=== PATIENT | male | born 1940 | race African-American/Black ===

== ENCOUNTER 2016-05-12 10:31 | Observation (INO) | payer MEDICARE ==
[2016-05-12] VITALS (11 sets, daily range): BP systolic 153–256; BP diastolic 70–121; PULSE 65–99; RESP 18–20; TEMP 98–98.4; O2SAT 96–99
[~2016-05-12] VITALS: Ht 170.2 cm; Wt 100.5 kg
--- NOTE | 2016-05-12 11:54 | PD ---
HPI Chief Complaint: Hypertension Time Seen by Provider: 11:50 Travel History International Travel<30 days: No Contact w/Intl Traveler<30days: No Traveled to known affect area: No History of Present Illness HPI Patient is a 76-year-old male presenting to emergency for evaluation of high blood pressure. Patient went to an urgent care center on Thursday due to left wrist pain and swelling, his blood pressure was high at that time and he was advised to follow-up with a primary care provider in 2 days. Patient does not have a primary care provider at this time. He states over the weekend he continue to monitor his blood pressure and he continued to be high. When his blood pressure was high again this morning they presented to the emergency department for evaluation. Patient denies any chest pain, shortness of breath, peripheral edema, nausea, vomiting, headache. Patient reports a remote history of hypertension but states he's been taken off of the medication because it resolved itself. Patient denies any tobacco, drug or alcohol use. PFSH Past Medical History Cardiovascular Problems: Yes (ENLARGED HEART ) Hypertension: Yes Past Surgical History Other Surgery: Yes (back surgery) Social History Alcohol Use: No Tobacco Use: No Substance Use: No Allergies-Medications (Allergen,Severity, Reaction): Coded Allergies: No Known Allergies (Unverified , 05/12/16) Reported Meds & Prescriptions Reported Meds & Active Scripts Active Norvasc (Amlodipine Besylate) 5 Mg Tab 5 Mg PO DAILY Review of Systems Except as stated in HPI: all other systems reviewed are Neg Physical Exam Narrative GENERAL: Well-developed, well-nourished, elderly gentleman. Resting comfortably in no acute distress. SKIN: Warm and dry. HEAD: Atraumatic. Normocephalic. EYES: Pupils equal and round. No scleral icterus. No injection or drainage. ENT: No nasal bleeding or discharge. Mucous membranes pink and moist. NECK: Trachea midline. No JVD. CARDIOVASCULAR: Regular rate and rhythm. 2/6 systolic murmur appreciated. RESPIRATORY: No accessory muscle use. Clear to auscultation. Breath sounds equal bilaterally. GASTROINTESTINAL: Abdomen soft, non-tender, nondistended. Hepatic and splenic margins not palpable. MUSCULOSKELETAL: No obvious deformities. No clubbing. No cyanosis. No edema. NEUROLOGICAL: Awake and alert. No obvious cranial nerve deficits. Motor grossly within normal limits. Normal speech. PSYCHIATRIC: Appropriate mood and affect; insight and judgment normal. Data Data Last Documented VS Vital Signs Date Time Temp Pulse Resp B/P Pulse Ox O2 Delivery O2 Flow Rate FiO2 05/12/16 15:00 80 18 181/86 98 05/12/16 13:29 Room Air 05/12/16 10:33 98.1 Orders Electrocardiogram (05/12/16 11:55) Ckmb (Isoenzyme) Profile (05/12/16 11:55) Complete Blood Count With Diff (05/12/16 11:55) Comprehensive Metabolic Panel (05/12/16 11:55) Magnesium (Mg) (05/12/16 11:55) Prothrombin Time / Inr (Pt) (05/12/16 11:55) Act Partial Throm Time (Ptt) (05/12/16 11:55) Troponin I (05/12/16 11:55) Chest, Single Ap (05/12/16 11:55) Urinalysis - C+S If Indicated (05/12/16 11:55) Amlodipine (Norvasc) (05/12/16 13:15) Hydralazine Inj (Apresoline Inj) (05/12/16 13:15) CKMB (05/12/16 12:10) CKMB% (05/12/16 12:10) Aspirin (Aspirin) (05/12/16 14:45) Admit Order (Ed Use Only) (05/12/16 14:59) Labs Laboratory Tests Test 05/12/16 05/12/16 12:10 12:14 White Blood Count 9.8 TH/MM3 Red Blood Count 4.76 MIL/MM3 Hemoglobin 12.8 GM/DL Hematocrit 38.1 % Mean Corpuscular Volume 80.1 FL Mean Corpuscular Hemoglobin 26.9 PG Mean Corpuscular Hemoglobin 33.6 % Concent Red Cell Distribution Width 15.1 % Platelet Count 213 TH/MM3 Mean Platelet Volume 10.3 FL Neutrophils (%) (Auto) 60.8 % Lymphocytes (%) (Auto) 30.9 % Monocytes (%) (Auto) 7.5 % Eosinophils (%) (Auto) 0.3 % Basophils (%) (Auto) 0.5 % Neutrophils # (Auto) 6.0 TH/MM3 Lymphocytes # (Auto) 3.0 TH/MM3 Monocytes # (Auto) 0.7 TH/MM3 Eosinophils # (Auto) 0.0 TH/MM3 Basophils # (Auto) 0.0 TH/MM3 CBC Comment DIFF FINAL Differential Comment Prothrombin Time 10.7 SEC Prothromb Time International 1.0 RATIO Ratio Activated Partial 29.5 SEC Thromboplast Time Sodium Level 137 MEQ/L Potassium Level 3.7 MEQ/L Chloride Level 103 MEQ/L Carbon Dioxide Level 23.0 MEQ/L Anion Gap 11 MEQ/L Blood Urea Nitrogen 20 MG/DL Creatinine 1.07 MG/DL Estimat Glomerular Filtration 81 ML/MIN Rate Random Glucose 80 MG/DL Calcium Level 9.2 MG/DL Magnesium Level 2.3 MG/DL Total Bilirubin 0.5 MG/DL Aspartate Amino Transf 15 U/L (AST/SGOT) Alanine Aminotransferase 23 U/L (ALT/SGPT) Alkaline Phosphatase 105 U/L Total Creatine Kinase 142 U/L Creatine Kinase MB 2.6 NG/ML Troponin I 0.06 NG/ML Total Protein 8.7 GM/DL Albumin 3.8 GM/DL Urine Color YELLOW Urine Turbidity CLEAR Urine pH 5.5 Urine Specific [place] 1.017 Urine Protein NEG mg/dL Urine Glucose (UA) NEG mg/dL Urine Ketones NEG mg/dL Urine Occult Blood NEG Urine Nitrite NEG Urine Bilirubin NEG Urine Urobilinogen LESS THAN 2.0 MG/DL Urine Leukocyte Esterase NEG Urine RBC 1 /hpf Urine WBC 1 /hpf Microscopic Urinalysis Comment CULT NOT INDICATED MDM Medical Decision Making Medical Screen Exam Complete: Yes Emergency Medical Condition: Yes Interpretation(s) Vital Signs Date Time Temp Pulse Resp B/P Pulse Ox O2 Delivery O2 Flow Rate FiO2 05/12/16 10:33 98.1 76 20 222/105 96 Room Air Differential Diagnosis Essential hypertension versus hypertensive urgency versus electrolyte abnormality versus cardiac arrhythmia versus other Narrative Course Patient is a 76-year-old male presenting to emergency room for evaluation of high blood pressure readings. Patient has a remote history of hypertension but was taken off of medication. He denies any physical complaints at this time. Workup initiated in triage, care patient will be transferred to provider when medical bed is available. Patient is resting comfortably, he is accompanied by family member. Scripts Amlodipine (Norvasc)5 Mg Tab5 Mg PO DAILY #30 TAB Ref 0 Prov:Jannette Blackwell DO 05/12/16 Oksana Mckeon May 12, 2016 11:54
--- NOTE | 2016-05-12 12:30 | RADRPT ---
EXAM DATE/TIME: 05/12/2016 11:55 [facility] COMPARISON: No previous studies available for comparison. INDICATIONS : High blood pressure. MEDICAL HISTORY : Hypertension. SURGICAL HISTORY : None. ENCOUNTER: Initial ACUITY: 1 day PAIN SCORE: 0/10 LOCATION: Bilateral chest FINDINGS: A single view of the chest demonstrates the lungs to be symmetrically aerated without evidence of mas s, infiltrate or effusion. The cardiomediastinal contours are unremarkable. Osseous structures are intact. CONCLUSION: No acute disease. Placido Stafford MD FACR on May 12, 2016 at 12:28 Board Certified Radiologist. This report was verified electronically.
[2016-05-12 12:41] LABS: BASOPHIL % 0.5 % (0.0-2.0); EOSINOPHIL % 0.3 % (0.0-4.0); HEMATOCRIT 38.1 % (39.0-51.0); HEMO FLAGS DIFF FINAL; LYMPH % 30.9 % (9.0-44.0); MEAN CELL VOLUME 80.1 FL (80.0-100.0); MEAN CORPUSCULAR HEMOGLOBIN 26.9 PG (27.0-34.0); MEAN CORPUSCULAR HGB CONC 33.6 % (32.0-36.0); MONO % 7.5 % (0.0-8.0); NEUT % 60.8 % (16.0-70.0); PLATELET COUNT 213 TH/MM3 (150-450); RED BLOOD COUNT 4.76 MIL/MM3 (4.50-5.90); RED CELL DISTRIBUTION WIDTH 15.1 % (11.6-17.2); WHITE BLOOD COUNT 9.8 TH/MM3 (4.0-11.0)
[2016-05-12 12:59] LABS: ANION GAP 11 MEQ/L (5-15); AST (GOT) 15 U/L (15-37); BLOOD UREA NITROGEN 20 MG/DL (7-18); CHLORIDE 103 MEQ/L (98-107); GLOMERULAR FILTRATION RATE 81 ML/MIN (>89); MAGNESIUM 2.3 MG/DL (1.5-2.5); POTASSIUM 3.7 MEQ/L (3.5-5.1); SODIUM (NA) 137 MEQ/L (136-145)
[2016-05-12 13:02] LABS: APTT (PATIENT) 29.5 SEC (24.3-30.1); PROTHROMBIN TIME - PATIENT 10.7 SEC (9.8-11.6)
[2016-05-12 13:03] LABS: ALKALINE PHOSPHATASE 105 U/L (45-117); ALT (GPT) 23 U/L (12-78); CREATINE KINASE 142 U/L (39-308); TOTAL BILIRUBIN ADULT 0.5 MG/DL (0.2-1.0)
[2016-05-12 13:11] LABS: BLOOD, URINE NEG (NEG); GLUCOSE,URINE NEG (NEG); KETONE, URINE NEG (NEG); NITRITE,URINE NEG (NEG); PH, URINE 5.5 (5.0-8.5); URINE COLOR YELLOW (YELLW/STRAW)
[2016-05-12 13:12] LABS: COMMENT (UR) CULT NOT INDICATED; CULTURE IF INDICATED CULT NOT INDICATED
[2016-05-12] MEDS ORDERED: AMLO5 PO (13:15)
[2016-05-12] MEDS ORDERED: amLODIPine BESYLATE 5 MG TAB PO ONE (13:15)
[2016-05-12] MEDS ORDERED: hydrALAZINE HCL 20 MG/ML VIAL IV PUSH ONE (13:15)
[2016-05-12 13:16] LABS: CKMB 2.6 NG/ML (0.5-3.6)
--- NOTE | 2016-05-12 13:16 | PD ---
Physical Exam Date Seen by Provider: May 12, 2016 Data Data Last Documented VS Vital Signs Date Time Temp Pulse Resp B/P Pulse Ox O2 Delivery O2 Flow Rate FiO2 05/12/16 13:40 80 18 174/70 99 05/12/16 13:29 Room Air 05/12/16 10:33 98.1 Orders Electrocardiogram (05/12/16 11:55) Ckmb (Isoenzyme) Profile (05/12/16 11:55) Complete Blood Count With Diff (05/12/16 11:55) Comprehensive Metabolic Panel (05/12/16 11:55) Magnesium (Mg) (05/12/16 11:55) Prothrombin Time / Inr (Pt) (05/12/16 11:55) Act Partial Throm Time (Ptt) (05/12/16 11:55) Troponin I (05/12/16 11:55) Chest, Single Ap (05/12/16 11:55) Urinalysis - C+S If Indicated (05/12/16 11:55) Amlodipine (Norvasc) (05/12/16 13:15) Hydralazine Inj (Apresoline Inj) (05/12/16 13:15) CKMB (05/12/16 12:10) CKMB% (05/12/16 12:10) Aspirin (Aspirin) (05/12/16 14:45) Labs Laboratory Tests Test 05/12/16 05/12/16 12:10 12:14 White Blood Count 9.8 TH/MM3 Red Blood Count 4.76 MIL/MM3 Hemoglobin 12.8 GM/DL Hematocrit 38.1 % Mean Corpuscular Volume 80.1 FL Mean Corpuscular Hemoglobin 26.9 PG Mean Corpuscular Hemoglobin 33.6 % Concent Red Cell Distribution Width 15.1 % Platelet Count 213 TH/MM3 Mean Platelet Volume 10.3 FL Neutrophils (%) (Auto) 60.8 % Lymphocytes (%) (Auto) 30.9 % Monocytes (%) (Auto) 7.5 % Eosinophils (%) (Auto) 0.3 % Basophils (%) (Auto) 0.5 % Neutrophils # (Auto) 6.0 TH/MM3 Lymphocytes # (Auto) 3.0 TH/MM3 Monocytes # (Auto) 0.7 TH/MM3 Eosinophils # (Auto) 0.0 TH/MM3 Basophils # (Auto) 0.0 TH/MM3 CBC Comment DIFF FINAL Differential Comment Prothrombin Time 10.7 SEC Prothromb Time International 1.0 RATIO Ratio Activated Partial 29.5 SEC Thromboplast Time Sodium Level 137 MEQ/L Potassium Level 3.7 MEQ/L Chloride Level 103 MEQ/L Carbon Dioxide Level 23.0 MEQ/L Anion Gap 11 MEQ/L Blood Urea Nitrogen 20 MG/DL Creatinine 1.07 MG/DL Estimat Glomerular Filtration 81 ML/MIN Rate Random Glucose 80 MG/DL Calcium Level 9.2 MG/DL Magnesium Level 2.3 MG/DL Total Bilirubin 0.5 MG/DL Aspartate Amino Transf 15 U/L (AST/SGOT) Alanine Aminotransferase 23 U/L (ALT/SGPT) Alkaline Phosphatase 105 U/L Total Creatine Kinase 142 U/L Creatine Kinase MB 2.6 NG/ML Troponin I 0.06 NG/ML Total Protein 8.7 GM/DL Albumin 3.8 GM/DL Urine Color YELLOW Urine Turbidity CLEAR Urine pH 5.5 Urine Specific [place] 1.017 Urine Protein NEG mg/dL Urine Glucose (UA) NEG mg/dL Urine Ketones NEG mg/dL Urine Occult Blood NEG Urine Nitrite NEG Urine Bilirubin NEG Urine Urobilinogen LESS THAN 2.0 MG/DL Urine Leukocyte Esterase NEG Urine RBC 1 /hpf Urine WBC 1 /hpf Microscopic Urinalysis Comment CULT NOT INDICATED MDM Medical Record Reviewed: Yes Supervised Visit with LAVONNE: Yes Interpretation(s) EKG at 1203: Normal sinus rhythm at 71 bpm, QT/QTc 388/410, first-degree AV block, no acute ST-T wave changes Vital Signs Date Time Temp Pulse Resp B/P Pulse Ox O2 Delivery O2 Flow Rate FiO2 05/12/16 13:02 74 18 256/121 99 Room Air 05/12/16 10:33 98.1 76 20 222/105 96 Room Air Differential Diagnosis Accelerated hypertension, renal insufficiency, electrolyte abnormalities, Narrative Course Patient is a 76-year-old male who presents to emergency room for evaluation of hypertension. Patient reports that he went to an urgent care center on Thursday as he had left-sided wrist pain and swelling, reports that he was told there that he had high blood pressure. Patient reports that he has had history of hypertension in the past, reports that he was previously on antihypertensives and was taken off of them greater than 20 years ago. Patient reports that he has not follow-up with a primary care doctor since then, reports that he is not currently on any medications. Patient reports that he has no headache or dizziness at this time. Patient denies any chest pain or shortness of breath. Patient reports that he came to the emergency room as he does not have a primary care doctor and wanted to have his blood pressure checked. Patient reports resolution of pain to his left wrist at this time, reports no complaints. Patient is presents to emergency room with accelerated hypertension, initial blood pressure was 222/105 with repeat blood pressure to 256/121. Patient is asymptomatic at this time, patient with no headache or dizziness, plan to obtain labs and evaluate for end organ damage. Will start patient on Norvasc. Patient understands need to follow-up with a primary care doctor Blood pressure now 195/83 Troponin 0.06 which is intermediate risk. Patient with no chest pain at this time. Discussed with patient that he will need to be observed in the hospital to trend his troponins, discussed that elevated troponins could be secondary to accelerated hypertension. Patient at this time refusing admission to the hospital. I discussed with patient my concerns as he has not follow-up with a primary care doctor, he does have an elevated blood pressure with a positive troponin which is concerning. Understands that I would like to keep the hospital for observation and for blood pressure monitoring and to trend that his troponins. Patient refusing admission at this time, patient's son at bedside AMA: The risks of leaving against medical advice without further evaluation treatment were discussed with the patient. These risks include cardiac dysfunction, cardiac dysrhythmia, possible heart attack, possible stroke or . The patient indicated understanding of these risks and appeared to have the capacity to make this decision. Patient now would like to be admitted to the hospital. Reviewed case with Dr. Cameron who accepts patient to service. Plan for observation patient and obtain serial troponins and to monitor blood pressure. Physician Communication Physician Communication case reviewed with dr cameron who accepts pt to service Diagnosis Primary Impression: Hypertension Qualified Code: I10 - Essential hypertension Additional Impression: positive troponin Admitting Information Admitting Physician Requests: Observation Referrals: Health Center Manager [facility] Primary Care Physician Patient Instructions: General Instructions Additional Instruction: Please follow-up with your primary care doctor as soon as possible You'll need your blood pressure rechecked in 1-2 days Please take all medications as prescribed Return to emergency room at any time if symptoms progress or worsen Med/Other Pt SpecificInfo: Prescription(s) given Scripts Amlodipine (Norvasc)5 Mg Tab5 Mg PO DAILY #30 TAB Ref 0 Prov:Jannette Blackwell DO 05/12/16 Disposition: 07 AGAINST MEDICAL ADVICE Condition: Serious Jannette Blackwell DO May 12, 2016 13:16
[2016-05-12] MEDS ORDERED: ASPIRIN 325 MG TAB PO ONE (14:45)
[2016-05-12] MEDS ORDERED: SODIUM CHLORIDE 0.9% FLUSH 5 ML FLUSH FLUSH PRN (15:00)
[2016-05-12] MEDS ORDERED: ZOLPIDEM TARTRATE 5 MG TAB PO PRN (15:00)
[2016-05-12] MEDS ORDERED: ACETAMINOPHEN 325 MG TAB PO PRN (15:00)
[2016-05-12] MEDS ORDERED: METOCLOPRAMIDE HCL 10 MG/2 ML VIAL IV PUSH PRN (15:00)
[2016-05-12] MEDS ORDERED: SODIUM CHLOR 0.9% 1000 ML INJ 1,000 ML IV SCH (15:00)
[2016-05-12] MEDS ORDERED: BISACODYL 10 MG SUPP PR PRN (15:00)
[2016-05-12] MEDS: DOCUSATE SODIUM 100 MG CAP PO SCH ×2 (15:00→23:35)
[2016-05-12] MEDS ORDERED: NALOXONE HCL 0.4 MG/ML AMP IV PRN (15:00)
[2016-05-12] MEDS ORDERED: ONDANSETRON HCL 4 MG/2 ML VIAL IVP PRN (15:00)
[2016-05-12] MEDS: METOPROLOL TARTRATE 25 MG TAB PO SCH ×2 (15:19→20:35)
--- NOTE | 2016-05-12 15:19 | HHI.HP ---
[facility] Service [facility] Primary Care Physician No Primary Care Physician Admission Diagnosis Positive Troponin, accelerated hypertension Diagnoses: (1) Elevated troponin level Diagnosis: Principal (2) Accelerated hypertension Diagnosis: Principal Chief Complaint: Accelerated Hypertension Travel History International Travel<30 Days: No Contact w/Intl Traveler <30 Da: No Traveled to Known Affected Are: No History of Present Illness This is a pleasant 76 y/o male who came to Emergency room due to elevated blood pressure he went to an Urgent Care with complaint of left wrist pain and swelling, found with elevated blood pressure, advised to follow with PCP but the patient hasn't got PCP, decided to come to ER, when he came to ER his blood pressure was elevated, on initial tests found with also elevated Troponin level, suggested by Emergency medicine Specialist to admit, denies chest pain, shortness of breath, peripheral edema, nausea, vomiting, headache. he has History of Hypertension. Patient seen in the room in the presence of his relative no new issues stable. Past Family Social History Past Medical History Cardiomegaly Hypertension. Past Surgical History Back Surgery Reported Medications Reported Meds & Active Scripts Active Norvasc (Amlodipine Besylate) 5 Mg Tab 5 Mg PO DAILY Allergies: Coded Allergies: No Known Allergies (Unverified , 05/12/16) Active Ordered Medications Current Medications Medications (Trade) Dose Ordered Sig/Saroj Route Start Time Stop Time Status Last Admin (NS 1000 ml Inj) 1,000 ml @ 100 mls/hr Q10H IV 05/12/16 15:00 05/12/16 15:18 (NS Flush) 2 ml UNSCH PRN FLUSH 05/12/16 15:00 (NS Flush) 2 ml BID FLUSH 05/12/16 21:00 (Tylenol) 650 mg Q4H PRN PO 05/12/16 15:00 (Zofran Inj) 4 mg Q6H PRN IVP 05/12/16 15:00 (Reglan Inj) 5 mg Q6H PRN IV PUSH 05/12/16 15:00 (Dulcolax Supp) 10 mg DAILY PRN VT 05/12/16 15:00 (Colace) 100 mg Q12H PO 05/12/16 15:00 (Ambien) 5 mg HS PRN PO 05/12/16 15:00 (Lovenox Inj) 40 mg Q24H SQ 05/12/16 16:00 (Narcan Inj) 0.4 mg UNSCH PRN IV 05/12/16 15:00 (Lopressor) 12.5 mg Q12HR PO 05/12/16 15:10 05/12/16 15:19 Family History Mother with DM II Sister with Cancer he does not know where. Social History worked for the [employer], lives with his , Denies any toxic habit Physical Exam Vital Signs Vital Signs Date Time Temp Pulse Resp B/P Pulse Ox O2 Delivery O2 Flow Rate FiO2 05/12/16 13:40 80 18 174/70 99 05/12/16 13:29 69 18 195/83 97 Room Air 05/12/16 13:02 74 18 256/121 99 Room Air 05/12/16 10:33 98.1 76 20 222/105 96 Room Air Physical Exam GENERAL: Well-developed, well-nourished, elderly gentleman. SKIN: Warm and dry. HEAD: Atraumatic. Normocephalic. EYES: Pupils equal and round. No scleral icterus. No injection or drainage. ENT: No nasal bleeding or discharge. Mucous membranes pink and moist. NECK: Trachea midline. No JVD. CARDIOVASCULAR: Regular rate and rhythm. No murmur appreciated. RESPIRATORY: No accessory muscle use. Clear to auscultation. Breath sounds equal bilaterally. GASTROINTESTINAL: Abdomen soft, non-tender, nondistended. Hepatic and splenic margins not palpable. MUSCULOSKELETAL: No obvious deformities. No clubbing. No cyanosis. No edema. NEUROLOGICAL: Awake and alert. No obvious cranial nerve deficits. Motor grossly within normal limits. Normal speech. PSYCHIATRIC: Appropriate mood and affect; insight and judgment normal. Laboratory Laboratory Tests Test 05/12/16 05/12/16 12:10 12:14 White Blood Count 9.8 Red Blood Count 4.76 Hemoglobin 12.8 Hematocrit 38.1 Mean Corpuscular Volume 80.1 Mean Corpuscular Hemoglobin 26.9 Mean Corpuscular Hemoglobin 33.6 Concent Red Cell Distribution Width 15.1 Platelet Count 213 Mean Platelet Volume 10.3 Neutrophils (%) (Auto) 60.8 Lymphocytes (%) (Auto) 30.9 Monocytes (%) (Auto) 7.5 Eosinophils (%) (Auto) 0.3 Basophils (%) (Auto) 0.5 Neutrophils # (Auto) 6.0 Lymphocytes # (Auto) 3.0 Monocytes # (Auto) 0.7 Eosinophils # (Auto) 0.0 Basophils # (Auto) 0.0 CBC Comment DIFF FINAL Differential Comment Prothrombin Time 10.7 Prothromb Time International 1.0 Ratio Activated Partial 29.5 Thromboplast Time Sodium Level 137 Potassium Level 3.7 Chloride Level 103 Carbon Dioxide Level 23.0 Anion Gap 11 Blood Urea Nitrogen 20 Creatinine 1.07 Estimat Glomerular Filtration 81 Rate Random Glucose 80 Calcium Level 9.2 Magnesium Level 2.3 Total Bilirubin 0.5 Aspartate Amino Transf 15 (AST/SGOT) Alanine Aminotransferase 23 (ALT/SGPT) Alkaline Phosphatase 105 Total Creatine Kinase 142 Creatine Kinase MB 2.6 Troponin I 0.06 Total Protein 8.7 Albumin 3.8 Urine Color YELLOW Urine Turbidity CLEAR Urine pH 5.5 Urine Specific [place] 1.017 Urine Protein NEG Urine Glucose (UA) NEG Urine Ketones NEG Urine Occult Blood NEG Urine Nitrite NEG Urine Bilirubin NEG Urine Urobilinogen LESS THAN 2.0 Urine Leukocyte Esterase NEG Urine RBC 1 Urine WBC 1 Microscopic Urinalysis Comment CULT NOT INDICATED Result Diagram: 05/12/16 1210 05/12/16 1210 Imaging Last Impressions Chest X-Ray 05/12/16 1155 Signed Impressions: Service Date/Time: Thursday, May 12, 2016 11:55 - CONCLUSION: No acute disease. Placido Stafford MD FACR Assessment and Plan Problem List: (1) Accelerated hypertension ICD Code: I10 Status: Acute (2) Elevated troponin level ICD Code: R74.8 Status: Acute Assessment and Plan 1. Accelerated Hypertension, started on Beta blockers and Diuretics. he was taking anti Hypertensive medicines 20 years ago until was stopped by his PCP. 2. Elevated Troponin level. will continue Hospitalized for 23 hour observation, I think is Equivocal Troponin elevation. continue Cardiac Enzymes every six hours, Cardiac monitoring, Echocardiogram DVT prophylaxis with Lovenox complete laboratory with TSH, Free T4, Hemoglobin A1C, Lipid panel Code Status Full Code. Discussed Condition With Patient, ER specialist and his relative in the room Physician Certification 2 Midnight Certification Type: Admission for Inpatient Services Order for Inpatient Services The services are ordered in accordance with Medicare regulations or non- Medicare payer requirements, as applicable. In the case of services not specified as inpatient-only, they are appropriately provided as inpatient services in accordance with the 2-midnight benchmark. Estimated LOS (days): 1 days is the estimated time the patient will need to remain in the hospital, assuming treatment plan goals are met and no additional complications. Post-Hospital Plan: Home Anthony Cameron MD May 12, 2016 15:19
[2016-05-12] MEDS: ENOXAPARIN SODIUM 40 MG/0.4 ML SYRINGE SQ SCH (16:35)
[2016-05-12] MEDS: HYDROCHLOROTHIAZIDE 25 MG TAB PO SCH (17:23)
[2016-05-12] MEDS: cloNIDine HCL 0.1 MG TAB PO PRN (20:35)
[2016-05-12] MEDS: SODIUM CHLORIDE 0.9% FLUSH 5 ML FLUSH FLUSH SCH (20:37)
[2016-05-12 23:48] LABS: CREATINE KINASE 111 U/L (39-308); FREE T4 1.13 NG/DL (0.76-1.46)
[2016-05-13] VITALS (9 sets, daily range): BP systolic 113–184; BP diastolic 58–88; PULSE 60–77; RESP 18–20; TEMP 98.2–98.7; O2SAT 95–97
[2016-05-13] MEDS: HYDROCHLOROTHIAZIDE 25 MG TAB PO SCH (08:50)
[2016-05-13] MEDS: METOPROLOL TARTRATE 25 MG TAB PO SCH ×2 (08:50→20:59)
[2016-05-13] MEDS: SODIUM CHLORIDE 0.9% FLUSH 5 ML FLUSH FLUSH SCH ×2 (08:51→21:03)
[2016-05-13 09:05] LABS: AUTOMATED NEUTROPHIL # 4.5 TH/MM3 (1.8-7.7); BASOPHIL % 0.6 % (0.0-2.0); EOSINOPHIL % 0.5 % (0.0-4.0); HEMATOCRIT 37.8 % (39.0-51.0); HEMO FLAGS DIFF FINAL; LYMPH % 32.6 % (9.0-44.0); LYMPHOCYTE # 2.7 TH/MM3 (1.0-4.8); MEAN CELL VOLUME 81.1 FL (80.0-100.0); MEAN CORPUSCULAR HEMOGLOBIN 26.8 PG (27.0-34.0); MONO % 11.5 % (0.0-8.0); NEUT % 54.8 % (16.0-70.0); PLATELET COUNT 213 TH/MM3 (150-450); RED BLOOD COUNT 4.66 MIL/MM3 (4.50-5.90); RED CELL DISTRIBUTION WIDTH 14.9 % (11.6-17.2); WHITE BLOOD COUNT 8.2 TH/MM3 (4.0-11.0)
[2016-05-13 09:08] LABS: PROTHROMBIN TIME - PATIENT 11.1 SEC (9.8-11.6)
[2016-05-13 09:43] LABS: BICARBONATE 28.3 MEQ/L (21.0-32.0); HDL CHOLESTEROL 44.7 MG/DL (40.0-60.0); POTASSIUM 4.6 MEQ/L (3.5-5.1)
[2016-05-13 13:38] LABS: HEMOGLOBIN A1a 1.3 %; HEMOGLOBIN Ao 84.3 %; HEMOGLOBIN F 0.9 %; HEMOGLOBIN LA1C 1.8 %; HEMOGLOBIN P3 3.8 %
[2016-05-13] MEDS: DOCUSATE SODIUM 100 MG CAP PO SCH (15:16)
[2016-05-13] MEDS: ENOXAPARIN SODIUM 40 MG/0.4 ML SYRINGE SQ SCH (15:16)
--- NOTE | 2016-05-13 15:46 | EKG ---
Date Performed: 05/12/2016 Time Performed: 12:03:48 PTAGE: 76 years EKG: Sinus rhythm WITH FIRST DEGREE AV BLOCK POSSIBLE LEFT ATRIAL ENLARGEMENT LEFT VENTRICULAR HYPERTROPHY AND ST-T CH RADHA ABNORMAL ECG NO PREVIOUS TRACING DOCTOR: Roger Berman Interpretating Date/Time 05/13/2016 15:45:43
--- NOTE | 2016-05-13 17:01 | HHI.PR ---
Subjective Remarks This is a pleasant 76 y/o male who came to Emergency room due to elevated blood pressure he went to an Urgent Care with complaint of left wrist pain and swelling, found with elevated blood pressure, advised to follow with PCP but the patient hasn't got PCP, decided to come to ER, when he came to ER his blood pressure was elevated, on initial tests found with also elevated Troponin level, suggested by Emergency medicine Specialist to admit, denies chest pain, shortness of breath, peripheral edema, nausea, vomiting, headache. he has History of Hypertension. patient stable in his bedroom discussed with his , Daughter and son, daughter in law still continue with high blood pressure, not yet Echocardiogram result in ER. Objective Vital Signs Date Time Temp Pulse Resp B/P Pulse Ox O2 Delivery O2 Flow Rate FiO2 05/13/16 12:00 98.6 76 20 150/70 97 05/13/16 10:37 95 05/13/16 08:45 Room Air 05/13/16 08:22 64 05/13/16 08:00 98.3 72 18 184/88 96 05/13/16 04:00 98.2 71 18 159/71 95 05/13/16 00:00 98.5 60 18 113/58 96 05/12/16 22:21 65 153/71 05/12/16 20:50 81 05/12/16 20:49 Room Air 05/12/16 20:00 98.0 99 18 188/87 98 05/12/16 18:00 98.4 80 20 227/109 99 05/12/16 17:15 74 18 206/91 Room Air I/O 05/12/16 05/12/16 05/12/16 05/13/16 05/13/16 05/13/16 07:00 15:00 23:00 07:00 15:00 23:00 Intake Total 240 ml 240 ml 2 ml Balance 240 ml 240 ml 2 ml Intake Oral 240 ml 240 ml IV Total 2 ml # Voids 1 2 # Bowel Movements 0 0 Result Diagram: 05/13/1619 05/13/1619 Imaging Last Impressions Chest X-Ray 05/12/16 1155 Signed Impressions: Service Date/Time: Thursday, May 12, 2016 11:55 - CONCLUSION: No acute disease. Placido Stafford MD FACR Procedures No procedures performed to the patient. Other Results Laboratory Tests Test 05/12/16 05/12/16 05/12/16 05/13/16 12:10 12:14 22:31 03:30 Activated Partial 29.5 SEC Thromboplast Time Magnesium Level 2.3 MG/DL Total Bilirubin 0.5 MG/DL Aspartate Amino Transf 15 U/L (AST/SGOT) Alanine Aminotransferase 23 U/L (ALT/SGPT) Alkaline Phosphatase 105 U/L Creatine Kinase MB 2.6 NG/ML Total Protein 8.7 GM/DL Albumin 3.8 GM/DL Urine Color YELLOW Urine Turbidity CLEAR Urine pH 5.5 Urine Specific [place] 1.017 Urine Protein NEG mg/dL Urine Glucose (UA) NEG mg/dL Urine Ketones NEG mg/dL Urine Occult Blood NEG Urine Nitrite NEG Urine Bilirubin NEG Urine Urobilinogen LESS THAN 2.0 MG/DL Urine Leukocyte Esterase NEG Urine RBC 1 /hpf Urine WBC 1 /hpf Microscopic Urinalysis Comment CULT NOT INDICATED Hemoglobin A1c 6.2 % Free Thyroxine 1.13 NG/DL Thyroid Stimulating Hormone 6.320 uIU/ML 3rd Gen Total Creatine Kinase 98 U/L Troponin I 0.06 NG/ML Test 05/13/16 08:19 White Blood Count 8.2 TH/MM3 Red Blood Count 4.66 MIL/MM3 Hemoglobin 12.5 GM/DL Hematocrit 37.8 % Mean Corpuscular Volume 81.1 FL Mean Corpuscular Hemoglobin 26.8 PG Mean Corpuscular Hemoglobin 33.0 % Concent Red Cell Distribution Width 14.9 % Platelet Count 213 TH/MM3 Mean Platelet Volume 10.2 FL Neutrophils (%) (Auto) 54.8 % Lymphocytes (%) (Auto) 32.6 % Monocytes (%) (Auto) 11.5 % Eosinophils (%) (Auto) 0.5 % Basophils (%) (Auto) 0.6 % Neutrophils # (Auto) 4.5 TH/MM3 Lymphocytes # (Auto) 2.7 TH/MM3 Monocytes # (Auto) 0.9 TH/MM3 Eosinophils # (Auto) 0.0 TH/MM3 Basophils # (Auto) 0.0 TH/MM3 CBC Comment DIFF FINAL Differential Comment Prothrombin Time 11.1 SEC Prothromb Time International 1.0 RATIO Ratio Sodium Level 138 MEQ/L Potassium Level 4.6 MEQ/L Chloride Level 103 MEQ/L Carbon Dioxide Level 28.3 MEQ/L Anion Gap 7 MEQ/L Blood Urea Nitrogen 25 MG/DL Creatinine 1.44 MG/DL Estimat Glomerular Filtration 58 ML/MIN Rate Random Glucose 89 MG/DL Calcium Level 9.0 MG/DL Triglycerides Level 114 MG/DL Cholesterol Level 300 MG/DL LDL Cholesterol 233 MG/DL HDL Cholesterol 44.7 MG/DL Cholesterol/HDL Ratio 6.71 RATIO Objective Remarks GENERAL: Obesity, elderly gentleman. SKIN: Warm and dry. HEAD: Atraumatic. Normocephalic. EYES: Pupils equal and round. No scleral icterus. No injection or drainage. ENT: No nasal bleeding or discharge. Mucous membranes pink and moist. NECK: Trachea midline. No JVD. CARDIOVASCULAR: Regular rate and rhythm. No murmur appreciated. RESPIRATORY: No accessory muscle use. Clear to auscultation. Breath sounds equal bilaterally. GASTROINTESTINAL: Abdomen soft, non-tender, nondistended. Hepatic and splenic margins not palpable. MUSCULOSKELETAL: No obvious deformities. No clubbing. No cyanosis. No edema. NEUROLOGICAL: Awake and alert. No obvious cranial nerve deficits. Motor grossly within normal limits. Normal speech. PSYCHIATRIC: Appropriate mood and affect; insight and judgment normal. Medications and IVs Current Medications Medications (Trade) Dose Ordered Sig/Saroj Route Start Time Stop Time Status Last Admin (NS Flush) 2 ml UNSCH PRN FLUSH 05/12/16 15:00 (NS Flush) 2 ml BID FLUSH 05/12/16 21:00 05/13/16 08:51 (Tylenol) 650 mg Q4H PRN PO 05/12/16 15:00 (Zofran Inj) 4 mg Q6H PRN IVP 05/12/16 15:00 (Reglan Inj) 5 mg Q6H PRN IV PUSH 05/12/16 15:00 (Dulcolax Supp) 10 mg DAILY PRN NM 05/12/16 15:00 (Colace) 100 mg Q12H PO 05/12/16 15:00 05/13/16 15:16 (Ambien) 5 mg HS PRN PO 05/12/16 15:00 (Lovenox Inj) 40 mg Q24H SQ 05/12/16 16:00 05/13/16 15:16 (Narcan Inj) 0.4 mg UNSCH PRN IV 3/6/17 15:00 (Lopressor) 12.5 mg Q12HR PO 05/12/16 15:10 05/13/16 08:50 (Hydrodiuril) 25 mg DAILY PO 05/12/16 17:00 05/13/16 08:50 (Catapres) 0.1 mg Q6H PRN PO 05/12/16 19:00 05/12/16 20:35 A/P Problem List: (1) Accelerated hypertension ICD Code: I10 (2) Elevated troponin level ICD Code: R74.8 (3) Obesity ICD Code: E66.9 Assessment and Plan 1. Accelerated Hypertension, started on Beta blockers and Diuretics. he was taking anti Hypertensive medicines 20 years ago until was stopped by his PCP. Increased Metoprolol to 25 mg BID and continue HCTZ 2. Elevated Troponin level. will continue Hospitalized for 23 hour observation, I think is Equivocal Troponin elevation. Cardiac enzymes stable equivocal troponin elevation, Cardiac monitoring, Echocardiogram awaiting for result 3. Obesity strongly recommended diet and exercise. DVT prophylaxis with Lovenox Code Status Full Code. Discharge Planning Expected by tomorrow Anthony Casey MD May 13, 2016 17:01
--- NOTE | 2016-05-13 17:15 | EC ---
Study Study Date:05/13/2016 STUDY CONCLUSIONS SUMMARY - Left ventricle: The cavity size was normal. Wall thickness was normal. Systolic function was normal. The estimated ejection fraction was in the range of 50% to 55%. Wall motion was normal; there were no regional wall motion abnormalities. - Aortic valve: Mild regurgitation. If LV function is below 40, please consider prescribing an ACEI or ARB or document rationale for non-use. PROCEDURE DATA STUDY STATUS: Elective. Procedure: Transthoracic echocardiography. Image quality was good. Scanning was performed from the parasternal, apical, and subcostal acoustic windows. Study completion: The patient tolerated the procedure well. Transthoracic echocardiography. M-mode, complete 2D, complete spectral Doppler, and color Doppler. Patient status: Inpatient. CARDIAC ANATOMY LEFT VENTRICLE: The cavity size was normal. Wall thickness was normal. Systolic function was normal. The estimated ejection fraction was in the range of 50% to 55%. Wall motion was normal; there were no regional wall motion abnormalities. AORTIC VALVE: Trileaflet; normal thickness leaflets. Doppler: Transvalvular velocity was within the normal range. There was no stenosis. Mild regurgitation. Mean gradient: 10mm Hg (S). Peak gradient: 24mm Hg (S). AORTA: Aortic root: The aortic root was normal in size. MITRAL VALVE: Structurally normal valve. Doppler: Transvalvular velocity was within the normal range. There was no evidence for stenosis. Trace to mild regurgitation. LEFT ATRIUM: The atrium was normal in size. RIGHT VENTRICLE: The cavity size was normal. Wall thickness was normal. PULMONIC VALVE: Doppler: Transvalvular velocity was within the normal range. There was no evidence for stenosis. No regurgitation. TRICUSPID VALVE: Structurally normal valve. Doppler: Transvalvular velocity was within the normal range. No regurgitation. PULMONARY ARTERY: The main pulmonary artery was normal-sized. Systolic pressure was within the normal range. RIGHT ATRIUM: The atrium was normal in size. PERICARDIUM: There was no pericardial effusion. SYSTEMIC VEINS: Inferior vena cava: The vessel was normal in size. BASIC MEASUREMENTS ADULT Normal Left ventricle LV internal dimension, ED, chordal level, 51.5 mm 43-52 PLAX LV internal dimension, ES, chordal level, 37.5 mm 23-38 PLAX Fractional shortening, chordal level, PLAX *27 % >29 LV posterior wall thickness, ED 8.52 mm IVS/LVPW ratio, ED *1.33 <1.3 Ventricular septum Septal thickness, ED 11.3 mm Left atrium Anterior-posterior dimension 40 mm DOPPLER MEASUREMENTS ADULT Normal Main pulmonary artery Pressure, S 14 mm Hg =30 Aortic valve Peak velocity, S 243 cm/s Mean velocity, S 145 cm/s VTI, S 46.4 cm Mean gradient, S 10 mm Hg Peak gradient, S 24 mm Hg Mitral valve Peak E-wave velocity 55.8 cm/s Peak A-wave velocity 78.5 cm/s Peak E/A ratio 0.7 Tricuspid valve Regurgitant peak velocity 154 cm/s Peak RV-RA gradient, S 9 mm Hg Maximal regurgitant velocity 154 cm/s Systemic veins Estimated CVP 5 mm Hg Right ventricle RV pressure, S 14 mm Hg <30 LEGEND: Mean values are shown as u=mean value. Asterisk (*) ruiz values outside specified normal range. Prepared and signed by Rolando Leger [id number]
[2016-05-13] MEDS: cloNIDine HCL 0.1 MG TAB PO PRN (17:30)
[2016-05-14] VITALS (7 sets, daily range): BP systolic 122–173; BP diastolic 62–79; PULSE 61–81; RESP 18–21; TEMP 96.8–98.6; O2SAT 95–99
[2016-05-14] MEDS: DOCUSATE SODIUM 100 MG CAP PO SCH ×2 (02:54→15:54)
[2016-05-14] MEDS: HYDROCHLOROTHIAZIDE 25 MG TAB PO SCH (07:36)
[2016-05-14] MEDS: METOPROLOL TARTRATE 25 MG TAB PO SCH ×2 (07:36→21:24)
[2016-05-14] MEDS: SODIUM CHLORIDE 0.9% FLUSH 5 ML FLUSH FLUSH SCH ×2 (07:36→21:24)
[2016-05-14 07:56] LABS: BICARBONATE 29.6 MEQ/L (21.0-32.0); POTASSIUM 4.2 MEQ/L (3.5-5.1)
[2016-05-14] MEDS: SODIUM CHLOR 0.45% 1000 ML INJ 1,000 ML IV SCH ×2 (12:28→20:30)
--- NOTE | 2016-05-14 12:45 | RADRPT ---
EXAM DATE/TIME: 05/14/2016 11:59 [facility] COMPARISON: No previous studies available for comparison. INDICATIONS : Increased BUN/Creatinine. MEDICAL HISTORY : Hypertension. Enlarged heart. SURGICAL HISTORY : Back surgery. ENCOUNTER: Initial ACUITY: 1 day PAIN SCORE: 2/10 LOCATION: Bilateral flank MEASUREMENTS: RIGHT KIDNEY: 10.2 x 4.7 x 4.7 cm LEFT KIDNEY: 9.9 x 5.6 x 6.6 cm FINDINGS: RIGHT KIDNEY: Renal cortex is normal in thickness and echotexture. No hydronephrosis, stone, or mass. LEFT KIDNEY: Mild parenchymal lobulation/convexity seen laterally of the left mid zone, most likely developmental. A mass is considered less likely. No hydronephrosis. BLADDER: Nondistended and grossly unremarkable. CONCLUSION: 1. Morphology of the left kidney most likely related to lobulation. Left mid zone mass felt muc h less likely but a contrast enhanced CT or MRI is recommended to fully exclude this possibility. 2. Normal right kidney. 3. No evidence of obstructive uropathy on either side. 4. Urinary bladder within normal limits. Minesh Escobedo MD on May 14, 2016 at 12:41 Board Certified Radiologist. This report was verified electronically.
[2016-05-14] MEDS: cloNIDine HCL 0.1 MG TAB PO PRN (13:29)
[2016-05-14] MEDS: ENOXAPARIN SODIUM 40 MG/0.4 ML SYRINGE SQ SCH (15:54)
--- NOTE | 2016-05-14 16:44 | HHI.PR ---
Subjective Remarks This is a pleasant 76 y/o male who came to Emergency room due to elevated blood pressure he went to an Urgent Care with complaint of left wrist pain and swelling, found with elevated blood pressure, advised to follow with PCP but the patient hasn't got PCP, decided to come to ER, when he came to ER his blood pressure was elevated, on initial tests found with also elevated Troponin level as Equivocal Troponin elevation, he developed renal insufficiency probable related to Diuretics used, will get Renal ultrasound and give half normal saline follow BMP and blood pressure controlled in am and uncontrolled in the afternoon. Objective Vital Signs Date Time Temp Pulse Resp B/P Pulse Ox O2 Delivery O2 Flow Rate FiO2 05/14/16 12:00 98.2 80 20 161/70 95 05/14/16 10:14 21 05/14/16 08:20 Room Air 05/14/16 08:00 61 05/14/16 08:00 Room Air 05/14/16 08:00 98.1 70 20 163/77 96 05/14/16 04:00 98.1 65 18 149/74 97 05/14/16 00:00 97.6 61 18 122/62 99 05/13/16 21:05 Room Air 05/13/16 20:00 98.7 75 18 122/62 97 05/13/16 19:34 95 21 I/O 05/13/16 05/13/16 05/13/16 05/14/16 05/14/16 05/14/16 07:00 15:00 23:00 07:00 15:00 23:00 Intake Total 240 ml 482 ml 240 ml 100 ml Balance 240 ml 482 ml 240 ml 100 ml Intake Oral 240 ml 480 ml 240 ml 100 ml IV Total 2 ml # Voids 2 3 2 1 # Bowel Movements 0 0 0 0 Result Diagram: 05/13/16 0819 05/14/16 0624 Imaging Last Impressions Renal Ultrasound 05/14/16 0000 Signed Impressions: Service Date/Time: Saturday, May 14, 2016 11:59 - CONCLUSION: 1. Morphology of the left kidney most likely related to lobulation. Left mid zone mass felt much less likely but a contrast enhanced CT or MRI is recommended to fully exclude this possibility. 2. Normal right kidney. 3. No evidence of obstructive uropathy on either side. 4. Urinary bladder within normal limits. Minesh Escobedo MD Chest X-Ray 05/12/16 1155 Signed Impressions: Service Date/Time: Thursday, May 12, 2016 11:55 - CONCLUSION: No acute disease. Placido Stafford MD FACR Procedures No procedures performed to the patient. Other Results Laboratory Tests Test 05/12/16 05/12/16 05/12/16 05/13/16 12:10 12:14 22:31 03:30 Activated Partial 29.5 SEC Thromboplast Time Magnesium Level 2.3 MG/DL Total Bilirubin 0.5 MG/DL Aspartate Amino Transf 15 U/L (AST/SGOT) Alanine Aminotransferase 23 U/L (ALT/SGPT) Alkaline Phosphatase 105 U/L Creatine Kinase MB 2.6 NG/ML Total Protein 8.7 GM/DL Albumin 3.8 GM/DL Urine Color YELLOW Urine Turbidity CLEAR Urine pH 5.5 Urine Specific [place] 1.017 Urine Protein NEG mg/dL Urine Glucose (UA) NEG mg/dL Urine Ketones NEG mg/dL Urine Occult Blood NEG Urine Nitrite NEG Urine Bilirubin NEG Urine Urobilinogen LESS THAN 2.0 MG/DL Urine Leukocyte Esterase NEG Urine RBC 1 /hpf Urine WBC 1 /hpf Microscopic Urinalysis Comment CULT NOT INDICATED Hemoglobin A1c 6.2 % Free Thyroxine 1.13 NG/DL Thyroid Stimulating Hormone 6.320 uIU/ML 3rd Gen Total Creatine Kinase 98 U/L Troponin I 0.06 NG/ML Test 05/13/16 05/14/16 08:19 06:24 White Blood Count 8.2 TH/MM3 Red Blood Count 4.66 MIL/MM3 Hemoglobin 12.5 GM/DL Hematocrit 37.8 % Mean Corpuscular Volume 81.1 FL Mean Corpuscular Hemoglobin 26.8 PG Mean Corpuscular Hemoglobin 33.0 % Concent Red Cell Distribution Width 14.9 % Platelet Count 213 TH/MM3 Mean Platelet Volume 10.2 FL Neutrophils (%) (Auto) 54.8 % Lymphocytes (%) (Auto) 32.6 % Monocytes (%) (Auto) 11.5 % Eosinophils (%) (Auto) 0.5 % Basophils (%) (Auto) 0.6 % Neutrophils # (Auto) 4.5 TH/MM3 Lymphocytes # (Auto) 2.7 TH/MM3 Monocytes # (Auto) 0.9 TH/MM3 Eosinophils # (Auto) 0.0 TH/MM3 Basophils # (Auto) 0.0 TH/MM3 CBC Comment DIFF FINAL Differential Comment Prothrombin Time 11.1 SEC Prothromb Time International 1.0 RATIO Ratio Triglycerides Level 114 MG/DL Cholesterol Level 300 MG/DL LDL Cholesterol 233 MG/DL HDL Cholesterol 44.7 MG/DL Cholesterol/HDL Ratio 6.71 RATIO Sodium Level 137 MEQ/L Potassium Level 4.2 MEQ/L Chloride Level 101 MEQ/L Carbon Dioxide Level 29.6 MEQ/L Anion Gap 6 MEQ/L Blood Urea Nitrogen 34 MG/DL Creatinine 1.79 MG/DL Estimat Glomerular Filtration 45 ML/MIN Rate Random Glucose 92 MG/DL Calcium Level 8.6 MG/DL Objective Remarks GENERAL: Obesity, elderly gentleman. SKIN: Warm and dry. HEAD: Atraumatic. Normocephalic. EYES: Pupils equal and round. No scleral icterus. No injection or drainage. ENT: No nasal bleeding or discharge. Mucous membranes pink and moist. NECK: Trachea midline. No JVD. CARDIOVASCULAR: Regular rate and rhythm. No murmur appreciated. RESPIRATORY: No accessory muscle use. Clear to auscultation. Breath sounds equal bilaterally. GASTROINTESTINAL: Abdomen soft, non-tender, nondistended. Hepatic and splenic margins not palpable. MUSCULOSKELETAL: No obvious deformities. No clubbing. No cyanosis. No edema. NEUROLOGICAL: Awake and alert. No obvious cranial nerve deficits. Motor grossly within normal limits. Normal speech. PSYCHIATRIC: Appropriate mood and affect; insight and judgment normal. Medications and IVs Current Medications Medications (Trade) Dose Ordered Sig/Saroj Route Start Time Stop Time Status Last Admin (NS Flush) 2 ml UNSCH PRN FLUSH 05/12/16 15:00 (NS Flush) 2 ml BID FLUSH 05/12/16 21:00 05/14/16 07:36 (Tylenol) 650 mg Q4H PRN PO 05/12/16 15:00 (Zofran Inj) 4 mg Q6H PRN IVP 05/12/16 15:00 (Reglan Inj) 5 mg Q6H PRN IV PUSH 05/12/16 15:00 (Dulcolax Supp) 10 mg DAILY PRN [place] 05/12/16 15:00 (Colace) 100 mg Q12H PO 05/12/16 15:00 05/14/16 15:54 (Ambien) 5 mg HS PRN PO 05/12/16 15:00 (Lovenox Inj) 40 mg Q24H SQ 05/12/16 16:00 05/14/16 15:54 (Narcan Inj) 0.4 mg UNSCH PRN IV 05/12/16 15:00 (Catapres) 0.1 mg Q6H PRN PO 05/12/16 19:00 05/14/16 13:29 Metoprolol Tartrate 25 mg 25 mg Q12HR PO 05/13/16 21:00 05/14/16 07:36 (1/2 NS 1000 ml Inj) 1,000 ml @ 100 mls/hr Q10H IV 05/14/16 10:30 05/14/16 12:28 A/P Problem List: (1) Accelerated hypertension ICD Code: I10 (2) Elevated troponin level ICD Code: R74.8 (3) Obesity ICD Code: E66.9 Assessment and Plan 1. Accelerated Hypertension, started on Beta blockers and Diuretics. he was taking anti Hypertensive medicines 20 years ago until was stopped by his PCP. on Metoprolol 25 mg BID and because developed Acute kidney injury medicine discontinued, also on Renal ultrasound found new left kidney with probable mass asked for MRI of the kidneys and will follow if continue elevated Creatinine will perform Nephrology specialist consult. added Amlodipine 2. Elevated Troponin level. will continue Hospitalized for 23 hour observation, I think is Equivocal Troponin elevation. Cardiac enzymes stable equivocal troponin elevation, Cardiac monitoring, Echocardiogram awaiting for result 3. Obesity strongly recommended diet and exercise. 4. SYED probable related to the use of Diuretics. renal US showed left kidney mass started on IV fluids and follow with new renal MRI and follow renal function. DVT prophylaxis with Lovenox Code Status Full Code. Discharge Planning Expected by tomorrow Anthony Casey MD May 14, 2016 16:44
[2016-05-14] MEDS: amLODIPine BESYLATE 5 MG TAB PO SCH (17:09)
[2016-05-14] MEDS: ATORVASTATIN 20 MG TAB PO SCH (17:09)
[2016-05-14 17:23] LABS: POTASSIUM 3.9 MEQ/L (3.5-5.1)
[2016-05-14] MEDS ORDERED: GADODIAMIDE PF 287 MG/ML 10 ML VIAL (for RAD MRI) IV ONE (21:03)
--- NOTE | 2016-05-14 21:42 | RADRPT ---
EXAM DATE/TIME: 05/14/2016 20:45 [facility] COMPARISON: US KIDNEY/RENAL/BLADDER, May 14, 2016, 11:59. INDICATIONS : Renal mass. CONTRAST: 10 cc Omniscan (gadodiamide) IV MEDICAL HISTORY : Hypertension. SURGICAL HISTORY : None. ENCOUNTER: Subsequent ACUITY: 3 day PAIN SCORE: 0/10 LOCATION: Abdomen TECH NOTE: half dose of omniscan- low GFR TECHNIQUE: Multiplanar, multisequence magnetic resonance imaging of the abdomen was performed without and with i ntravenous contrast. FINDINGS: LIVER: Normal size with normal signal intensity. No lesion is identified. Portal vein is within normal limi ts. Small hepatic cyst. Small T2 bright lesions along the undersurface of the liver may relate to an exophytic cyst. BILIARY: There is no intra- or extra-hepatic biliary ductal dilatation. Gallbladder contains no stones. SPLEEN: Within normal limits. PANCREAS: Within normal limits. ADRENALS: Within normal limits. KIDNEYS: Normal size and signal intensity. There is no hydronephrosis or mass. Small left-sided renal cyst. OTHER: Aorta is nonaneurysmal. There is no lymphadenopathy. CONCLUSION: 1. No renal mass seen. 2. Small left-sided renal cysts. Roberto Ott MD on May 14, 2016 at 21:35 Board Certified Radiologist. This report was verified electronically.
[2016-05-15] VITALS: BP 162/77; PULSE 61; RESP 20; TEMP 97.8; O2SAT 98
[2016-05-15] MEDS: DOCUSATE SODIUM 100 MG CAP PO SCH (01:49)
[2016-05-15] MEDS: cloNIDine HCL 0.1 MG TAB PO PRN (01:49)
[2016-05-15 01:51] VITALS: BP 166/80
[2016-05-15 02:45] VITALS: PULSE 85
[2016-05-15 04:10] VITALS: BP 130/60; PULSE 65; RESP 20; TEMP 97.3; O2SAT 98
[2016-05-15] MEDS: SODIUM CHLOR 0.45% 1000 ML INJ 1,000 ML IV SCH (06:30)
[2016-05-15 07:21] LABS: BICARBONATE 27.6 MEQ/L (21.0-32.0)
[2016-05-15 08:00] VITALS: BP 168/79; PULSE 68; RESP 22; TEMP 97.8; O2SAT 100
[2016-05-15 08:08] VITALS: PULSE 62
[2016-05-15] MEDS: ATORVASTATIN 20 MG TAB PO SCH (08:33)
[2016-05-15] MEDS: amLODIPine BESYLATE 5 MG TAB PO SCH (08:33)
[2016-05-15] MEDS: METOPROLOL TARTRATE 25 MG TAB PO SCH (08:33)
[2016-05-15] MEDS: SODIUM CHLORIDE 0.9% FLUSH 5 ML FLUSH FLUSH SCH (08:36)
--- NOTE | 2016-05-15 08:47 | HHI.PR ---
Subjective Remarks This is a pleasant 76 y/o male who came to Emergency room due to elevated blood pressure he went to an Urgent Care with complaint of left wrist pain and swelling, found with elevated blood pressure, advised to follow with PCP but the patient hasn't got PCP, decided to come to ER, when he came to ER his blood pressure was elevated, on initial tests found with also elevated Troponin level as Equivocal Troponin elevation, developed renal insufficiency associated to the use of diuretics, improving with IV fluids, HCTZ removed, his blood pressure improving with Beta blockers and Amlodipine, will be discharged today and follow with PCP as outpatient. seen in the room in the presence of nurse Miss Geovanna barrett. Objective Vital Signs Date Time Temp Pulse Resp B/P Pulse Ox O2 Delivery O2 Flow Rate FiO2 05/15/16 04:10 97.3 65 20 130/60 98 05/15/16 02:45 85 05/15/16 01:51 166/80 05/15/16 00:00 97.8 61 20 162/77 98 05/14/16 22:01 Room Air 05/14/16 20:00 96.8 81 21 173/76 97 05/14/16 17:10 95 21 05/14/16 16:00 98.6 71 20 170/79 97 05/14/16 12:00 98.2 80 20 161/70 95 05/14/16 10:14 21 I/O 05/14/16 05/14/16 05/14/16 05/15/16 05/15/16 05/15/16 07:00 15:00 23:00 07:00 15:00 23:00 Intake Total 100 ml 840 ml 930 ml Balance 100 ml 840 ml 930 ml Intake Oral 100 ml 240 ml 240 ml IV Total 600 ml 690 ml # Voids 1 2 2 # Bowel Movements 0 0 1 Result Diagram: 05/13/16 0819 05/15/16 0558 Imaging Last Impressions Renal Ultrasound 05/14/16 0000 Signed Impressions: Service Date/Time: Saturday, May 14, 2016 11:59 - CONCLUSION: 1. Morphology of the left kidney most likely related to lobulation. Left mid zone mass felt much less likely but a contrast enhanced CT or MRI is recommended to fully exclude this possibility. 2. Normal right kidney. 3. No evidence of obstructive uropathy on either side. 4. Urinary bladder within normal limits. Minesh Escobedo MD Abdomen MRI 05/14/16 0000 Signed Impressions: Service Date/Time: Saturday, May 14, 2016 20:45 - CONCLUSION: 1. No renal mass seen. 2. Small left-sided renal cysts. Roberto Ott MD Chest X-Ray 05/12/16 1155 Signed Impressions: Service Date/Time: Thursday, May 12, 2016 11:55 - CONCLUSION: No acute disease. Placido Stafford MD FACR Procedures No procedures performed to the patient. Other Results Laboratory Tests Test 05/12/16 05/12/16 05/12/16 05/13/16 12:10 12:14 22:31 03:30 Activated Partial 29.5 SEC Thromboplast Time Magnesium Level 2.3 MG/DL Total Bilirubin 0.5 MG/DL Aspartate Amino Transf 15 U/L (AST/SGOT) Alanine Aminotransferase 23 U/L (ALT/SGPT) Alkaline Phosphatase 105 U/L Creatine Kinase MB 2.6 NG/ML Total Protein 8.7 GM/DL Albumin 3.8 GM/DL Urine Color YELLOW Urine Turbidity CLEAR Urine pH 5.5 Urine Specific [place] 1.017 Urine Protein NEG mg/dL Urine Glucose (UA) NEG mg/dL Urine Ketones NEG mg/dL Urine Occult Blood NEG Urine Nitrite NEG Urine Bilirubin NEG Urine Urobilinogen LESS THAN 2.0 MG/DL Urine Leukocyte Esterase NEG Urine RBC 1 /hpf Urine WBC 1 /hpf Microscopic Urinalysis Comment CULT NOT INDICATED Hemoglobin A1c 6.2 % Free Thyroxine 1.13 NG/DL Thyroid Stimulating Hormone 6.320 uIU/ML 3rd Gen Total Creatine Kinase 98 U/L Troponin I 0.06 NG/ML Test 05/13/16 05/15/16 08:19 05:58 White Blood Count 8.2 TH/MM3 Red Blood Count 4.66 MIL/MM3 Hemoglobin 12.5 GM/DL Hematocrit 37.8 % Mean Corpuscular Volume 81.1 FL Mean Corpuscular Hemoglobin 26.8 PG Mean Corpuscular Hemoglobin 33.0 % Concent Red Cell Distribution Width 14.9 % Platelet Count 213 TH/MM3 Mean Platelet Volume 10.2 FL Neutrophils (%) (Auto) 54.8 % Lymphocytes (%) (Auto) 32.6 % Monocytes (%) (Auto) 11.5 % Eosinophils (%) (Auto) 0.5 % Basophils (%) (Auto) 0.6 % Neutrophils # (Auto) 4.5 TH/MM3 Lymphocytes # (Auto) 2.7 TH/MM3 Monocytes # (Auto) 0.9 TH/MM3 Eosinophils # (Auto) 0.0 TH/MM3 Basophils # (Auto) 0.0 TH/MM3 CBC Comment DIFF FINAL Differential Comment Prothrombin Time 11.1 SEC Prothromb Time International 1.0 RATIO Ratio Triglycerides Level 114 MG/DL Cholesterol Level 300 MG/DL LDL Cholesterol 233 MG/DL HDL Cholesterol 44.7 MG/DL Cholesterol/HDL Ratio 6.71 RATIO Sodium Level 136 MEQ/L Potassium Level 4.0 MEQ/L Chloride Level 100 MEQ/L Carbon Dioxide Level 27.6 MEQ/L Anion Gap 8 MEQ/L Blood Urea Nitrogen 29 MG/DL Creatinine 1.37 MG/DL Estimat Glomerular Filtration 61 ML/MIN Rate Random Glucose 91 MG/DL Calcium Level 8.8 MG/DL Objective Remarks GENERAL: Obesity, elderly gentleman. SKIN: Warm and dry. HEAD: Atraumatic. Normocephalic. EYES: Pupils equal and round. No scleral icterus. No injection or drainage. ENT: No nasal bleeding or discharge. Mucous membranes pink and moist. NECK: Trachea midline. No JVD. CARDIOVASCULAR: Regular rate and rhythm. No murmur appreciated. RESPIRATORY: No accessory muscle use. Clear to auscultation. Breath sounds equal bilaterally. GASTROINTESTINAL: Abdomen soft, non-tender, nondistended. Hepatic and splenic margins not palpable. MUSCULOSKELETAL: No obvious deformities. No clubbing. No cyanosis. No edema. NEUROLOGICAL: Awake and alert. No obvious cranial nerve deficits. Motor grossly within normal limits. Normal speech. PSYCHIATRIC: Appropriate mood and affect; insight and judgment normal. Medications and IVs Current Medications Medications (Trade) Dose Ordered Sig/Saroj Route Start Time Stop Time Status Last Admin (NS Flush) 2 ml UNSCH PRN FLUSH 05/12/16 15:00 (NS Flush) 2 ml BID FLUSH 05/12/16 21:00 05/14/16 21:24 (Tylenol) 650 mg Q4H PRN PO 05/12/16 15:00 (Zofran Inj) 4 mg Q6H PRN IVP 05/12/16 15:00 (Reglan Inj) 5 mg Q6H PRN IV PUSH 05/12/16 15:00 (Dulcolax Supp) 10 mg DAILY PRN [place] 05/12/16 15:00 (Colace) 100 mg Q12H PO 05/12/16 15:00 05/15/16 01:49 (Ambien) 5 mg HS PRN PO 05/12/16 15:00 (Lovenox Inj) 40 mg Q24H SQ 05/12/16 16:00 05/14/16 15:54 (Narcan Inj) 0.4 mg UNSCH PRN IV 05/12/16 15:00 (Catapres) 0.1 mg Q6H PRN PO 05/12/16 19:00 05/15/16 01:49 Metoprolol Tartrate 25 mg 25 mg Q12HR PO 05/13/16 21:00 05/15/16 08:33 (1/2 NS 1000 ml Inj) 1,000 ml @ 100 mls/hr Q10H IV 05/14/16 10:30 05/15/16 06:30 (Norvasc) 5 mg DAILY PO 05/14/16 16:45 05/15/16 08:33 (Lipitor) 20 mg DAILY PO 05/14/16 16:45 05/15/16 08:33 A/P Problem List: (1) Accelerated hypertension ICD Code: I10 (2) Elevated troponin level ICD Code: R74.8 (3) Obesity ICD Code: E66.9 Assessment and Plan 1. Accelerated Hypertension, started on Beta blockers and Diuretics. he was taking anti Hypertensive medicines 20 years ago until was stopped by his PCP. on Metoprolol 25 mg BID and Amlodipine with better blood pressure level at this time, he will need to continue taking his Oral medicines and follow with PCP to continue titration of his medicines, the patient developed renal insufficiency associated with Diuretic use. HCTZ discontinued. and his Renal function improving, creatinine trending down. 2. Elevated Troponin level. will continue Hospitalized for 23 hour observation, I think is Equivocal Troponin elevation. Cardiac enzymes stable equivocal troponin elevation, Cardiac monitoring, Echocardiogram no pathology. 3. Obesity strongly recommended diet and exercise. 4. SYED probable related to the use of Diuretics. renal US showed left kidney mass started on IV fluids and Creatinine trending down, MRI abdomen no renal mass found. Discharge Home today. Discussed with Patient and tried to speak with his Mrs. Paco Butt to the Phone number [phone] was answered to me that she does not work there but I will be here and discuss with relatives once they come to the Hospital. DVT prophylaxis with Lovenox Code Status Full Code. Discharge Planning Discharge Home today Anthony Casey MD May 15, 2016 08:47
[2016-05-15] MEDS ORDERED: METO25TA3 PO (08:51)
[2016-05-15] MEDS ORDERED: ASPI81CH CHEW (08:51)
[2016-05-15] MEDS ORDERED: LIPI20TA PO (08:51)
[2016-05-15] MEDS ORDERED: AMLO5 PO (08:51)
--- NOTE | 2016-05-15 08:55 | HHI.DS ---
Discharge Summary Admission Date May 12, 2016 at 15:01 Discharge Date: May 15, 2016 Admitting Diagnosis Positive Troponin, accelerated hypertension (1) Accelerated hypertension ICD Code: I10 Diagnosis: Principal (2) Elevated troponin level ICD Code: R74.8 Diagnosis: Principal (3) Obesity ICD Code: E66.9 Diagnosis: Secondary (4) Hyperlipidemia LDL goal <70 ICD Code: E78.5 Diagnosis: Principal (5) Acute kidney injury ICD Code: N17.9 Diagnosis: Principal Procedures No procedures performed to the patient. Brief History - From Admission This is a pleasant 76 y/o male who came to Emergency room due to elevated blood pressure he went to an Urgent Care with complaint of left wrist pain and swelling, found with elevated blood pressure, advised to follow with PCP but the patient hasn't got PCP, decided to come to ER, when he came to ER his blood pressure was elevated, on initial tests found with also elevated Troponin level, suggested by Emergency medicine Specialist to admit, denies chest pain, shortness of breath, peripheral edema, nausea, vomiting, headache. he has History of Hypertension. Patient seen in the room in the presence of his relative no new issues stable. CBC/BMP: 05/13/16 0819 05/15/16 0558 Significant Findings Laboratory Tests Test 05/12/16 05/12/16 05/13/16 05/13/16 12:10 22:31 03:30 08:19 Hemoglobin 12.8 GM/DL 12.5 GM/DL (13.0-17.0) (13.0-17.0) Hematocrit 38.1 % 37.8 % (39.0-51.0) (39.0-51.0) Mean Corpuscular Hemoglobin 26.9 PG 26.8 PG (27.0-34.0) (27.0-34.0) Blood Urea Nitrogen 20 MG/DL (7-18) 25 MG/DL (7-18) Estimat Glomerular Filtration 81 ML/MIN (>89) 58 ML/MIN (>89) Rate Troponin I 0.06 NG/ML 0.06 NG/ML 0.06 NG/ML (0.02-0.05) (0.02-0.05) (0.02-0.05) Total Protein 8.7 GM/DL (6.4-8.2) Hemoglobin A1c 6.2 % (4.3-6.0) Thyroid Stimulating Hormone 6.320 uIU/ML 3rd Gen (0.358-3.740) Monocytes (%) (Auto) 11.5 % (0.0-8.0) Creatinine 1.44 MG/DL (0.60-1.30) Cholesterol Level 300 MG/DL (120-200) LDL Cholesterol 233 MG/DL (0-99) Test 05/14/16 05/14/16 05/15/16 06:24 16:35 05:58 Blood Urea Nitrogen 34 MG/DL (7-18) 33 MG/DL (7-18) 29 MG/DL (7-18) Creatinine 1.79 MG/DL 1.51 MG/DL 1.37 MG/DL (0.60-1.30) (0.60-1.30) (0.60-1.30) Estimat Glomerular Filtration 45 ML/MIN (>89) 55 ML/MIN (>89) 61 ML/MIN (>89) Rate Sodium Level 134 MEQ/L (136-145) Imaging Last Impressions Renal Ultrasound 05/14/16 0000 Signed Impressions: Service Date/Time: Saturday, May 14, 2016 11:59 - CONCLUSION: 1. Morphology of the left kidney most likely related to lobulation. Left mid zone mass felt much less likely but a contrast enhanced CT or MRI is recommended to fully exclude this possibility. 2. Normal right kidney. 3. No evidence of obstructive uropathy on either side. 4. Urinary bladder within normal limits. Minesh Escobedo MD Abdomen MRI 05/14/16 0000 Signed Impressions: Service Date/Time: Saturday, May 14, 2016 20:45 - CONCLUSION: 1. No renal mass seen. 2. Small left-sided renal cysts. Roberto Ott MD Chest X-Ray 05/12/16 1155 Signed Impressions: Service Date/Time: Thursday, May 12, 2016 11:55 - CONCLUSION: No acute disease. Placido Stafford MD FACR PE at Discharge GENERAL: Obesity, elderly gentleman. SKIN: Warm and dry. HEAD: Atraumatic. Normocephalic. EYES: Pupils equal and round. No scleral icterus. No injection or drainage. ENT: No nasal bleeding or discharge. Mucous membranes pink and moist. NECK: Trachea midline. No JVD. CARDIOVASCULAR: Regular rate and rhythm. No murmur appreciated. RESPIRATORY: No accessory muscle use. Clear to auscultation. Breath sounds equal bilaterally. GASTROINTESTINAL: Abdomen soft, non-tender, nondistended. Hepatic and splenic margins not palpable. MUSCULOSKELETAL: No obvious deformities. No clubbing. No cyanosis. No edema. NEUROLOGICAL: Awake and alert. No obvious cranial nerve deficits. Motor grossly within normal limits. Normal speech. PSYCHIATRIC: Appropriate mood and affect; insight and judgment normal. Hospital Course This is a pleasant 76 y/o male who came to Emergency room due to elevated blood pressure he went to an Urgent Care with complaint of left wrist pain and swelling, found with elevated blood pressure, advised to follow with PCP but the patient hasn't got PCP, decided to come to ER, when he came to ER his blood pressure was elevated, on initial tests found with also elevated Troponin level as Equivocal Troponin elevation, developed renal insufficiency associated to the use of diuretics, improving with IV fluids, HCTZ removed, his blood pressure improving with Beta blockers and Amlodipine, will be discharged today and follow with PCP as outpatient. seen in the room in the presence of nurse Miss Geovanna barrett. Assessment and Plan 1. Accelerated Hypertension, started on Beta blockers and Diuretics. he was taking anti Hypertensive medicines 20 years ago until was stopped by his PCP. on Metoprolol 25 mg BID and Amlodipine with better blood pressure level at this time, he will need to continue taking his Oral medicines and follow with PCP to continue titration of his medicines, the patient developed renal insufficiency associated with Diuretic use. HCTZ discontinued. and his Renal function improving, creatinine trending down. 2. Elevated Troponin level. will continue Hospitalized for 23 hour observation, I think is Equivocal Troponin elevation. Cardiac enzymes stable equivocal troponin elevation, Cardiac monitoring, Echocardiogram no pathology. Discharged on Aspirin 81 mg daily for clot prevention 3. Obesity strongly recommended diet and exercise. 4. SYED probable related to the use of Diuretics. renal US showed left kidney mass started on IV fluids and Creatinine trending down, MRI abdomen no renal mass found. 5. Hyperlipidemia started on Atorvastatin. Discharge Home today. Discussed with Patient and tried to speak with his Mrs. Paco Butt to the Phone number [phone] was answered to me that she does not work there but I will be here and discuss with relatives once they come to the Hospital. DVT prophylaxis with Lovenox Code Status Full Code. Discharge Planning Discharge Home today Pt Condition on Discharge: Good Discharge Disposition: Discharge Home Discharge Time: <= 30 minutes Discharge Instructions DIET: Follow Instructions for: Heart Healthy Diet Activities you can perform: Regular-No Restrictions Anthony Casey MD May 15, 2016 08:55
== END 2016-05-15 09:49 | disposition home or self-care (01) ==
LOC: NEPC 10:31 → NEDH 15:01 → N04A 17:53
PROVIDERS: ADMIT Internal Medicine; ATTEND Internal Medicine
DX: I10 Essential (primary) hypertension (principal); R74.8 Abnormal levels of other serum enzymes; N17.9 Acute kidney failure, unspecified; E78.5 Hyperlipidemia, unspecified; E66.9 Obesity, unspecified; Z68.34 Body mass index [BMI] 34.0-34.9, adult
CPT/HCPCS: 71010; 74183; 76775; 80048; 80053; 80061; 81001; 82550; 82552; 83036; 83735; 84439; 84443; 84484; 85025; 85610; 85730; 93005; 93306; 96361; 96372; 96374; 99285; A9579; G0378; J0360; J1650; J7030

== ENCOUNTER → 2016-07-18 | Outpatient (CLI) | payer MEDICARE ==
[~2016-07-18] MED LIST: AMLO5 PO; ASPI81CH CHEW; LIPI20TA PO; METO25TA3 PO
[2016-07-18 08:12] LABS: AUTOMATED NEUTROPHIL # 3.9 TH/MM3 (1.8-7.7); BASOPHIL # 0.1 TH/MM3 (0-0.2); BASOPHIL % 0.7 % (0.0-2.0); EOSINOPHIL # 0.1 TH/MM3 (0-0.4); EOSINOPHIL % 1.8 % (0.0-4.0); HEMATOCRIT 37.5 % (39.0-51.0); HEMO FLAGS DIFF FINAL; LYMPH % 32.6 % (9.0-44.0); LYMPHOCYTE # 2.3 TH/MM3 (1.0-4.8); MEAN CELL VOLUME 80.6 FL (80.0-100.0); MEAN CORPUSCULAR HEMOGLOBIN 25.6 PG (27.0-34.0); MEAN CORPUSCULAR HGB CONC 31.7 % (32.0-36.0); MONO % 8.9 % (0.0-8.0); PLATELET COUNT 198 TH/MM3 (150-450); RED BLOOD COUNT 4.65 MIL/MM3 (4.50-5.90); RED CELL DISTRIBUTION WIDTH 15.3 % (11.6-17.2); WHITE BLOOD COUNT 7.1 TH/MM3 (4.0-11.0)
[2016-07-18 08:27] LABS: MICRO ALBUMIN RANDOM URINE RAW 5.5 MG/L (0.0-30.0)
[2016-07-18 08:38] LABS: ALT (GPT) 23 U/L (12-78); ANION GAP 8 MEQ/L (5-15); AST (GOT) 16 U/L (15-37); BICARBONATE 26.8 MEQ/L (21.0-32.0); BLOOD UREA NITROGEN 15 MG/DL (7-18); CHLORIDE 104 MEQ/L (98-107); GLOMERULAR FILTRATION RATE 70 ML/MIN (>89); GLUCOSE,FASTING 151 MG/DL (74-99); SODIUM (NA) 139 MEQ/L (136-145)
[2016-07-18 08:41] LABS: ALKALINE PHOSPHATASE 140 U/L (45-117); HDL CHOLESTEROL 42.2 MG/DL (40.0-60.0); LDL CHOLESTEROL 85 MG/DL (0-99); TOTAL BILIRUBIN ADULT 0.4 MG/DL (0.2-1.0)
== END ==
LOC: CLAB 07:44
PROVIDERS: ATTEND Family Medicine
DX: E78.5 Hyperlipidemia, unspecified (principal); I10 Essential (primary) hypertension
CPT/HCPCS: 36415; 80053; 80061; 82043; 85025

== ENCOUNTER → 2016-11-11 | Outpatient (CLI) | payer MEDICARE ==
[2016-11-11 10:12] LABS: BASOPHIL % 0.6 % (0.0-2.0); EOSINOPHIL # 0.1 TH/MM3 (0-0.4); EOSINOPHIL % 1.2 % (0.0-4.0); HEMATOCRIT 38.5 % (39.0-51.0); HEMO FLAGS DIFF FINAL; LYMPH % 35.7 % (9.0-44.0); MEAN CORPUSCULAR HGB CONC 32.5 % (32.0-36.0); MONO % 10.2 % (0.0-8.0); NEUT % 52.3 % (16.0-70.0); PLATELET COUNT 207 TH/MM3 (150-450); RED BLOOD COUNT 4.82 MIL/MM3 (4.50-5.90); RED CELL DISTRIBUTION WIDTH 16.8 % (11.6-17.2); WHITE BLOOD COUNT 5.7 TH/MM3 (4.0-11.0)
[2016-11-11 10:29] LABS: MICRO ALBUMIN RANDOM URINE RAW 5.3 MG/L (0.0-30.0)
[2016-11-11 10:36] LABS: ALT (GPT) 21 U/L (12-78); ANION GAP 5 MEQ/L (5-15); AST (GOT) 14 U/L (15-37); BICARBONATE 27.7 MEQ/L (21.0-32.0); BLOOD UREA NITROGEN 12 MG/DL (7-18); CHLORIDE 104 MEQ/L (98-107); GLOMERULAR FILTRATION RATE 70 ML/MIN (>89); GLUCOSE,FASTING 85 MG/DL (74-99); POTASSIUM 4.2 MEQ/L (3.5-5.1); SODIUM (NA) 137 MEQ/L (136-145)
[2016-11-11 10:46] LABS: ALKALINE PHOSPHATASE 139 U/L (45-117); HDL CHOLESTEROL 52.7 MG/DL (40.0-60.0); LDL CHOLESTEROL 111 MG/DL (0-99); TOTAL BILIRUBIN ADULT 0.5 MG/DL (0.2-1.0)
[2016-11-11 12:00] LABS: HEMOGLOBIN A1a 1.3 %; HEMOGLOBIN Ao 84.2 %; HEMOGLOBIN P3 3.8 %
== END ==
LOC: CLAB 09:21
PROVIDERS: ATTEND Family Medicine
DX: E78.5 Hyperlipidemia, unspecified (principal); E11.9 Type 2 diabetes mellitus without complications
CPT/HCPCS: 36415; 80053; 80061; 82043; 83036; 84443; 85025

== ENCOUNTER → 2017-07-28 | Outpatient (CLI) | payer MEDICARE ==
[~2017-07-28] MED LIST changes: +ASPI-516 CHEW; -ASPI81CH CHEW
[2017-07-28 09:54] LABS: AUTOMATED NEUTROPHIL # 2.9 TH/MM3 (1.8-7.7); BASOPHIL % 0.5 % (0.0-2.0); EOSINOPHIL # 0.1 TH/MM3 (0-0.4); EOSINOPHIL % 1.5 % (0.0-4.0); HEMATOCRIT 39.5 % (39.0-51.0); HEMOGLOBIN 12.8 GM/DL (13.0-17.0); LYMPH % 38.6 % (9.0-44.0); LYMPHOCYTE # 2.3 TH/MM3 (1.0-4.8); MEAN CELL VOLUME 80.9 FL (80.0-100.0); MEAN CORPUSCULAR HEMOGLOBIN 26.1 PG (27.0-34.0); MEAN CORPUSCULAR HGB CONC 32.3 % (32.0-36.0); MEAN PLATELET VOLUME 9.3 FL (7.0-11.0); MONO % 11.1 % (0.0-8.0); MONOCYTE # 0.7 TH/MM3 (0-0.9); NEUT % 48.3 % (16.0-70.0); PLATELET COUNT 232 TH/MM3 (150-450); RED BLOOD COUNT 4.88 MIL/MM3 (4.50-5.90); RED CELL DISTRIBUTION WIDTH 15.5 % (11.6-17.2); WHITE BLOOD COUNT 6.1 TH/MM3 (4.0-11.0)
[2017-07-28 10:58] LABS: ALBUMIN 3.8 GM/DL (3.4-5.0); AST (GOT) 18 U/L (15-37); BICARBONATE 27.1 MEQ/L (21.0-32.0); BLOOD UREA NITROGEN 16 MG/DL (7-18); CALCIUM 9.1 MG/DL (8.5-10.1); CHLORIDE 106 MEQ/L (98-107); CHOLESTEROL 145 MG/DL (120-200); CREATININE 1.23 MG/DL (0.60-1.30); GLOMERULAR FILTRATION RATE 69 ML/MIN (>89); GLUCOSE,FASTING 96 MG/DL (74-99); SODIUM (NA) 140 MEQ/L (136-145)
[2017-07-28 11:07] LABS: ALKALINE PHOSPHATASE 144 U/L (45-117); ALT (GPT) 23 U/L (12-78); CHOLESTEROL/ HDL RATIO 3.59 RATIO; HDL CHOLESTEROL 40.3 MG/DL (40.0-60.0); IRON (FE) 36 MCG/DL (65-175); LDL CHOLESTEROL 85 MG/DL (0-99); TOTAL BILIRUBIN ADULT 0.2 MG/DL (0.2-1.0); TOTAL PROTEIN 8.2 GM/DL (6.4-8.2); TRIGLYCERIDES 97 MG/DL (42-150)
[2017-07-28 15:51] LABS: HEMOGLOBIN A1C 6.1 % (4.3-6.0)
== END ==
LOC: CLAB 09:26
PROVIDERS: ATTEND Family Medicine
DX: I10 Essential (primary) hypertension (principal); E78.5 Hyperlipidemia, unspecified; E11.9 Type 2 diabetes mellitus without complications; N40.1 Benign prostatic hyperplasia with lower urinary tract symptoms; E55.9 Vitamin D deficiency, unspecified; D64.9 Anemia, unspecified
CPT/HCPCS: 36415; 80053; 80061; 82043; 82306; 83036; 83540; 84153; 84443; 84550; 85025